=== PATIENT | female | born 1960 | race Caucasian/White ===

== ENCOUNTER → 2024-07-19 | Outpatient (CLI) | payer OTHER ==
--- NOTE | 2024-07-19 14:23 | CT ---
EXAMINATION TYPE: CT soft tissue neck w con DATE OF EXAM: 07/19/2024 1:31 PM COMPARISON: None CLINICAL INDICATION: Female, 64 years old with history of R59.0 LOCALIZED ENLARGED LYMPH N; PHH, left side lymphadenopathy, ear/jaw pain/pressure both sides TECHNIQUE: CT scan of the neck is performed following with IV Contrast, patient injected with 100 mL of Isovue 3 00. Axial images are obtained, coronal and sagittal reformatted images are reviewed. CT DLP: 337.[address] CTDI: mGy Automated exposure control for dose reduction was used. Findings: The thyroid gland is not enlarged and there are no focal masses. The larynx including the thyroid, arytenoid, cricoid cartilages as well as the vocal cords are normal and symmetric without laryngeal mass. The tongue base, epiglottis, aryepiglottic folds, piriform sinuses and vallecula are normal and symme tric. There is no oral or nasal pharyngeal or parapharyngeal or pharyngeal soft tissue mass or enhancement. The submandibular glands and parotid glands are normal and symmetric. The great vessels of the neck are normal. There is no adenopathy or abscess within the neck. Visualized osseous structures are intact. IMPRESSION: No significant abnormality seen. . [facility], , 07/19/2024 2:21 PM
== END | disposition home or self-care (01) ==
LOC: RADCTMAIN 12:40
PROVIDERS: ATTEND Family Medicine
DX: R59.0 Localized enlarged lymph nodes (principal)
CPT/HCPCS: 70491; Q9967